=== PATIENT | male | born 1990 | race Caucasian/White ===

== ENCOUNTER 2020-06-17 05:15 | Emergency (ER) | payer SELFPAY ==
[~2020-06-17] VITALS: Ht 177.8 cm; Wt 83.9 kg
[2020-06-17 05:22] VITALS: BP 122/79
--- NOTE | 2020-06-17 05:22 | NUR ---
TO BED AMBULATORY
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
--- NOTE | 2020-06-17 05:46 | NUR ---
RHETT LEÓN AT BEDSIDE EVALUATING PATIENT.
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
[2020-06-17] MEDS: HYDROcodone/APAP 5/325 MG 1 TAB TAB PO ONE (06:04)
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
[2020-06-17] MEDS: ONDANSETRON 4 MG ODT PO ONE (06:05)
--- NOTE | 2020-06-17 06:05 | NUR ---
RAD AT BEDSIDE PERFORMING XRAY.
[2020-06-17] MEDS ORDERED: ACET-8386 PO (06:33)
[2020-06-17 06:38] VITALS: BP 122/79
--- NOTE | 2020-06-17 06:38 | NUR ---
SHODNA LÓPEZ AT BEDSIDE SPEAKING WITH PATIENT. PER PATIENT UNWILLING TO GIVE INFORMATION OR REPORT AN INCIDENT REPORT.
--- NOTE | 2020-06-17 06:38 | NUR ---
Patient discharged with v/s stable. Written and verbal after care instructions given and explained. Patient alert, oriented and verbalized understanding of instructions. Ambulatory with steady gait. All questions addressed prior to discharge. ID band removed. Patient advised to follow up with PMD. Rx of HYDROCODONE/ACETAMINOPHEN given. Patient educated on indication of medication including possible reaction and side effects. Opportunity to ask questions provided and answered.
== END 2020-06-17 06:38 | disposition home or self-care (01) ==
LOC: MED 05:15
DX: S60.511A Abrasion of right hand, initial encounter (principal); Y04.0XXA Assault by unarmed brawl or fight, initial encounter; Y93.89 Activity, other specified; Y92.89 Other specified places as the place of occurrence of the external cause; Y99.8 Other external cause status
CPT/HCPCS: 73110; 73130; 99284; Q0162